=== PATIENT | female | born 1960 | race Caucasian/White ===

== ENCOUNTER → 2017-02-28 | Outpatient (CLI) | payer OTHER ==
[~2017-02-28] MED LIST: ALBUTEROL 0.083% (NEB) 2.5 MG/3 ML AMP ONE
== END | disposition home or self-care (01) ==
LOC: PUL 10:56
PROVIDERS: ATTEND Licensed Practical Nurse
DX: R04.9 Hemorrhage from respiratory passages, unspecified (principal)
CPT/HCPCS: 94060; 94726; 94729; Z7610

== ENCOUNTER → 2018-08-01 | Outpatient (CLI) | END | disposition home or self-care (01) ==